=== PATIENT | male | born 1965 | race Caucasian/White ===

== ENCOUNTER 2017-09-19 19:53 | Emergency (ER) | payer BC ==
[~2017-09-19] VITALS: Ht 167.6 cm; Wt 72.0 kg
[2017-09-19 20:06] VITALS: BP 138/87
[2017-09-19] MEDS ORDERED: AMOX500C2 PO (22:55)
[2017-09-19] MEDS ORDERED: HYDR-3965 PO (22:55)
== END 2017-09-19 23:21 | disposition home or self-care (01) ==
LOC: ER 19:54
DX: S63.095A Other dislocation of left wrist and hand, initial encounter (principal); V29.9XXA Motorcycle rider (driver) (passenger) injured in unspecified traffic accident, initial encounter; Y93.89 Activity, other specified; Y92.89 Other specified places as the place of occurrence of the external cause; Y99.8 Other external cause status
CPT/HCPCS: 29125; 73110; 99284